=== PATIENT | female | born 1985 | race Caucasian/White ===

== ENCOUNTER 2021-03-30 21:31 | Emergency (ER) | payer MEDICAID ==
[~2021-03-30] VITALS: Ht 154.9 cm; Wt 77.1 kg
[2021-03-30 21:49] VITALS: BP 135/79
[2021-03-30] MEDS ORDERED: KETOROLAC 30 MG/ML VIAL IM ONE (21:50)
[2021-03-30] MEDS ORDERED: diazePAM 5 MG TAB PO ONE (21:50)
--- NOTE | 2021-03-30 21:55 | NUR ---
Patient ambulated to bed 7 with steady gait. ZACHARYD performed medical evaluation in Triage.
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
--- NOTE | 2021-03-30 22:22 | NUR ---
notified pt about positive , pt placed in gown for an ultrasound
--- NOTE | 2021-03-30 22:43 | NUR ---
at bedside doing an ultrasound
--- NOTE | 2021-03-30 23:23 | NUR ---
pt laying on the gurnee while sleeping daughter is next to her. pt seems to be in no acute distress
[2021-03-30] MEDS ORDERED: ACET-10509 PO (23:32)
[2021-03-30 23:57] VITALS: BP 129/78
--- NOTE | 2021-03-30 23:57 | NUR ---
Patient discharged with v/s stable. PT STILL HAS PAIN BUT IS TOLERABLE FOR PATIENT. Written and verbal after care instructions given and explained. Patient alert, oriented and verbalized understanding of instructions. Ambulatory with steady gait. All questions addressed prior to discharge. ID band removed. Patient advised to follow up with PMD. Rx of TYLENOL EXTRA STRENGTH given. Patient educated on indication of medication including possible reaction and side effects. Opportunity to ask questions provided and answered. VITALS: O2 SATS-98% HR- 81 BP- 129/78 TEMP- 98.7 RR- 16
== END 2021-03-30 23:57 | disposition home or self-care (01) ==
LOC: MED 21:31
DX: S19.9XXA Unspecified injury of neck, initial encounter (principal); S09.90XA Unspecified injury of head, initial encounter; M54.5 Low back pain; Z32.01 Encounter for pregnancy test, result positive; H53.8 Other visual disturbances; R11.0 Nausea; R42 Dizziness and giddiness; V89.2XXA Person injured in unspecified motor-vehicle accident, traffic, initial encounter; Y93.89 Activity, other specified; Y92.410 Unspecified street and highway as the place of occurrence of the external cause; Y99.8 Other external cause status
CPT/HCPCS: 81025; 99282

== ENCOUNTER 2021-07-22 01:43 | Emergency (ER) | payer MEDICAID ==
[~2021-07-22] VITALS: Ht 149.9 cm; Wt 61.2 kg
[~2021-07-22 01:43] MED LIST: ACET-10509 PO
[2021-07-22 02:00] VITALS: BP 122/73
--- NOTE | 2021-07-22 02:19 | NUR ---
PATIENT TO LOBBY
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
[2021-07-22] MEDS ORDERED: ACETAMINOPHEN EXTRA STRENGTH 500 MG TAB PO ONE (03:10)
--- NOTE | 2021-07-22 03:24 | NUR ---
PT. TAKEN TO CT VIA W.C
[2021-07-22 04:32] VITALS: BP 122/73
--- NOTE | 2021-07-22 04:32 | NUR ---
Patient discharged with v/s stable. Written and verbal after care instructions given and explained. Patient verbalized understanding. Ambulatory with steady gait. All questions addressed prior to discharge. Advised to follow up with PMD.
== END 2021-07-22 04:32 | disposition home or self-care (01) ==
LOC: MED 01:43
DX: O9A.212 Injury, poisoning and certain other consequences of external causes complicating pregnancy, second trimester (principal); S09.90XA Unspecified injury of head, initial encounter; Z79.899 Other long term (current) drug therapy; Z3A.16 16 weeks gestation of pregnancy; X58.XXXA Exposure to other specified factors, initial encounter; Y93.89 Activity, other specified; Y92.89 Other specified places as the place of occurrence of the external cause; Y99.8 Other external cause status
CPT/HCPCS: 70450; 99284